=== PATIENT | female | born 1995 | race Caucasian/White ===

== ENCOUNTER 2017-01-22 09:20 | Outpatient (CLI) | payer OTHER ==
[~2017-01-22 09:20] MED LIST: AMOXICILLIN 25250 M2 PO; CARAFATE 1GM TAB1 GM PO; DEXAMETHASONE0.5 MG PO; FLONASE 50 MCG16 GM; IBUPROFEN600 MG; MEDROL 4MG. DOSE4 MG PO; PERCOCET 5/3251 EACH PO; PRILOSEC20 M1 PO; ZITHROMAX Z PA250 MG PO; ZOFRAN4 MG PO
--- NOTE | 2017-01-22 10:19 | RADIOLOGY REPORT PS360 ---
US RUQ-(ABD LTD)1ORGAN/QUAD/FU HISTORY: RUQ PAIN, DIARRHEA ORDERING PHYSICIAN: Lisa Colindres PATIENT AGE: 21 years COMPARISON: None FINDINGS: PANCREAS:Unremarkable. No obvious mass or abnormal fluid collection. No ductal dilatation LIVER:No focal liver lesions demonstrated. Homogeneous echogenicity. No intrahepatic biliary ductal dilatation evident RIGHT KIDNEY:Unremarkable. Normal size and echogenicity. No hydronephrosis LEFT KIDNEY:Unremarkable. No hydronephrosis. Normal size and echogenicity. GALLBLADDER:No gallstones, gallbladder wall thickening, pericholecystic fluid, or biliary dilatation. AORTA:No evidence of aneurysmal dilatation. SPLEEN:Unremarkable. Normal size and echogenicity ASCITES:None demonstrated. IMPRESSION: Negative abdominal ultrasound.
--- NOTE | 2017-01-22 10:20 | RADIOLOGY REPORT PS360 ---
ABDOMEN-FLAT UPRIGHT HISTORY: RUQ PAIN, DIAARHEA ORDERING PHYSICIAN: Lisa Colindres PATIENT AGE: 21 years COMPARISON: None FINDINGS: Nonspecific bowel gas pattern. No evidence of intestinal structure in or free air. No acute bony anomalies or abnormal calcification/urolithiasis. IMPRESSION: Negative flat and upright abdomen
[2017-01-22 11:00] VITALS: BP 123/87
[2017-01-22 11:07] LABS: HEMOGLOBIN 13.4 g/dL (12.2-16.2); LYMPH % 29.6 % (10-50.0)
[2017-01-22 11:18] LABS: BUN 9 mg/dL (7-18)
[2017-01-22 11:19] LABS: GFR (ESTIMATED) 127 ML/MIN (59-)
[2017-01-22 11:30] VITALS: BP 122/75
[2017-01-22 12:10] VITALS: BP 118/70
[2017-01-22 12:19] LABS: AEROMONAS NOT DETECTED (NOT DETECTE); ASTROVIRUS NOT DETECTED (NOT DETECTE); CYCLOSPORA CAYETANENSIS NOT DETECTED (NOT DETECTE); E COLI O157 NOT DETECTED (NOT DETECTE); ENTEROAGGREGATIVE E COLI NOT DETECTED (NOT DETECTE); ENTEROPATHOGENIC E COLI NOT DETECTED (NOT DETECTE); ENTEROTOXIGENIC E COLI NOT DETECTED (NOT DETECTE); NOROVIRUS NOT DETECTED (NOT DETECTE); SAPOVIRUS NOT DETECTED (NOT DETECTE); SHIGA-LIKE TOXIN PROD. E COLI NOT DETECTED (NOT DETECTE); SHIGELLA/ENTEROINVASIVE E COLI NOT DETECTED (NOT DETECTE); VIBRIO CHOLERAE NOT DETECTED (NOT DETECTE)
[2017-01-23 08:47] LABS: Immunoglobulin A, Qn 188 mg/dL (87-352); Immunoglobulin G, Qn 881 mg/dL (700-1600); Immunoglobulin M, Qn 93 mg/dL (26-217)
== END 2017-01-22 12:10 | disposition home or self-care (01) ==
LOC: COP 09:20
PROVIDERS: Emergency Medicine
DX: R19.7 Diarrhea, unspecified (principal); R10.10 Upper abdominal pain, unspecified; R00.0 Tachycardia, unspecified
CPT/HCPCS: J2405